=== PATIENT | male | born 1940 | race Caucasian/White ===

== ENCOUNTER → 2017-12-09 | Outpatient (CLI) | payer MEDICARE ==
[~2017-12-09] MED LIST: ABAC300; ABAC300 PO; ACIDOPHILUS LA1 EACH PO; ACIDOPHILUS1 EAC1 PO; ALBU3IS INH; ALBU90OI INH; ASCORBIC ACID PO; ASPI325 PO; ASPI81CH PO; ASPI81EC PO; ATOR20 PO; Acidophilus La100 GM; Acidophilus La100 GM PO; Albuterol Sulf8.5 GM INH; Alph-E-Mixed400 UNIT PO; CALACE667G PO; CALCA500CH PO; CARV3.125 PO; CEPH250A PO; CHOL10002 PO; CINA30 PO; CLON.2 PO; CLON.5 PO; CLOP75 PO; Calcium Acetat667 MG PO; DIAZ2 PO; DOCU100 PO; EPOE4000I SQ; ERGO50000 PO; FURO40 PO; GABA300 PO; GENT.1TC TOP; HYDACE10B PO; HYDACE5 PO; HYDR120LO TOP; HYDR25SUP PR; HYDROCODON-ACE1 EAC2 PO; Humulin N100 UNIT/1 SQ; INS70/30I SC; INSN100I SC; INSR10I SC; INSULANPEN SC; IPRA.03NI; ISOD40ER PO; ISOMON30 PO; LEVFLO500 PO; LIDO5TO TOP; LORA.5; LORA1; LOSA25 PO; LOSA50 PO; LOVENOX SC; METCAR500 PO; METO25 PO; METO25ER PO; METO50ER PO; MIDO5; MULVITB PO; Meribin5 MG PO; NEPHRO VITE PO; NEPHROCAP PO; NIFE90ER PO; Novolin R100 UNIT/M SC; OMEP20ER PO; OMEP40CA12 PO; OMEPRAZOLE MAGN20 MG PO; PANT40 PO; PRED10 PO; PREG50 PO; PROM25 PO; ROPI.25 PO; ROPI5 PO; ROSU10TA PO; Renal Caps Softg1 MG PO; Ropinirole HC0.25 MG PO; SENN187 PO; SERT50 PO; SEVE800 PO; SEVEC800 PO; TERA5 PO; TRIA80TC TOP; WARF10 PO; WARF5; ZOLP10 PO
[2017-12-09 08:56] LABS: Cholesterol 125 mg/dL (50-200); HDL Cholesterol 42 mg/dL (>39); LDL/HDL RATIO 1.7; Low Density Lipoprotein Chol 70 mg/dL (0-110); Triglycerides 67 mg/dL (30-160); Very Low Density Lipoprot Chol 13 mg/dL (6-32)
== END | disposition home or self-care (01) ==
LOC: LAB DAV 08:36
PROVIDERS: Internal Medicine Nephrology
DX: E78.00 Pure hypercholesterolemia, unspecified (principal)
CPT/HCPCS: 80061

== ENCOUNTER 2019-08-11 08:50 | Inpatient (IN) | payer OTHER, MEDICARE ==
[~2019-08-11] VITALS: Ht 182.9 cm; Wt 160.2 kg
[~2019-08-11 08:50] MED LIST changes: -LORA.5; +LORA.5 PO; -MIDO5; +MIDO5 PO
[2019-08-11 09:04] LABS: Base Excess Venous -1.1 mmol/L; Bicarbonate Venous 22.7 mmol/L (24.0-30.0); PCO2 Venous 53.1 mmHg (38-42); PO2 Venous 69.6 mmHg (38-42); pH Blood Venous 7.29 (7.34-7.37)
[2019-08-11 09:10] LABS: Calcium, Ionized (POC) 1.07 mmol/L (1.10-1.46); Chloride (POC) 101 mmol/L (98-108); Creatinine (POC) 12.2 mg/dL (0.8-1.3); Glucose (ISTAT POC) 210 mg/dL (70-99); Hemoglobin (POC) 13.6 g/dL (13.5-17.5); Potassium (POC) 6.8 mmol/L (3.5-5.5); Sodium (POC) 135 mmol/L (135-148); Total CO2 (POC) 26 mmol/L (21-32)
[2019-08-11] MEDS ORDERED: DOCU100 PO (09:17)
[2019-08-11] MEDS ORDERED: CLOP75 PO (09:17)
[2019-08-11] MEDS ORDERED: GABA300 PO (09:21)
[2019-08-11 09:23] LABS: BASOPHILS ABSOLUTE AUTO 0.03 K/mm3 (0.00-0.23); BASOPHILS PERCENT AUTO 0 % (0-2); EOSINOPHILS ABSOLUTE AUTO 0.01 K/mm3 (0.00-0.68); EOSINOPHILS PERCENT AUTO 0 % (0-6); Hematocrit 39.7 % (37.0-53.0); Hemoglobin 12.3 g/dL (13.5-17.5); IMMATURE GRAN PERCENT AUTO 1 % (0-1); LYMPHOCYTES ABSOLUTE AUTO 0.98 K/mm3 (0.84-5.20); LYMPHOCYTES PERCENT AUTO 4 % (21-46); MONOCYTES ABSOLUTE AUTO 0.76 K/mm3 (0.16-1.47); MONOCYTES PERCENT AUTO 3 % (4-13); Mean Corpuscular HGB 30.4 pg (26.0-34.0); Mean Corpuscular Volume 98 fL (80-100); Mean Platelet Volume 10.2 fL (9.1-12.4); NEUTROPHILS ABSOLUTE AUTO 21.25 K/mm3 (1.96-9.15); NEUTROPHILS PERCENT AUTO 91 % (41-73); Platelet Count 197 K/mm3 (150-400); RDW Coefficient Variation 14.8 % (11.7-14.2); RDW Standard Deviation 54.1 fL (35.1-46.3); Red Blood Cell Count 4.04 M/mm3 (4.30-5.90); White Blood Cell Count 23.33 K/mm3 (4.00-11.30)
[2019-08-11] MEDS ORDERED: NORTHERA100 MG PO (09:44)
[2019-08-11] MEDS ORDERED: NITR.4SL (09:45)
[2019-08-11] MEDS ORDERED: CINA30 PO (09:46)
[2019-08-11 10:05] LABS: Alanine Aminotransfer (ALT/SGP 20 U/L (12-78); Albumin, Blood 3.5 g/dL (3.4-5.0); Albumin/Globulin Ratio 0.8 (0.8-1.8); Alk Phos 70 U/L (50-136); Anion Gap 12 mmol/L (6-16); Aspartate Aminotrans (AST/SGOT 20 U/L (12-37); Bilirubin, Total 0.6 mg/dL (0.1-1.0); Blood Urea Nitrogen 98 mg/dL (8-24); CO2, Blood 25 mmol/L (21-32); Calcium, Blood 9.5 mg/dL (8.5-10.1); Chloride, Blood 98 mmol/L (98-108); Globulin, Blood 4.2 g/dL (2.2-4.0); Glucose, Blood 212 mg/dL (70-99); Sodium, Blood 135 mmol/L (136-145); Total Protein, Blood 7.7 g/dL (6.4-8.2)
--- NOTE | 2019-08-11 10:06 | NUR ---
Recieved report from Ricardo SHELBY. Patient is ICU status and went to Dialysis and went to Dialysis and asked about med that need to be given and Renny SHELBY stated they will have to wait until after Dialysis. They will call prior to patient coming to ICU 12.
[2019-08-11 10:19] LABS: Bun/Creatinine Ratio 9.2 (12.0-20.0); Glomerular Filtration Rate 5 (60-)
[2019-08-11 10:20] LABS: Magnesium, Blood 2.1 mg/dL (1.6-2.4); Phosphorus, Blood 5.2 mg/dL (2.5-4.9); Potassium, Blood 6.6 mmol/L (3.5-5.5)
--- NOTE | 2019-08-11 11:01 | NUR ---
DUE TO UNSTABLE CONDITION, HEMODIALYSIS WAS PAUSED AT APPROX 1030. PATIENT TRANSFERED TO ICU FOR INTENSIVE MANAGEMENT. FISTULA NEEDLES FLUSHED AND WRAPPED WITH COBAN. TREATMENT WILL RESUME WHEN JW ACUTE NURSE ARRIVES AT ICU.
--- NOTE | 2019-08-11 11:44 | NUR ---
Patient arrived at 1030 and was 4 person slide transfer. He is on BIPAP 14/6 BU rate 14 and FiO2 45% and sats mid 90%'s Dr Padron here with patient. Freddy RN in route to restart dialysis. Dr. Padron called Dialysis and wanted stopped and moved to ICU 12. Meds given that were ordered in ER and Dr Jimenez consulted in person. Chest Xray just done. He is hypotensive and will watch if nneeded line and Dr Jimenez already notified, His systolic 70-80 with MAP 50-60. Dialysis in room now hooking up.
--- NOTE | 2019-08-11 13:41 | NUR ---
Patient finishing dialysis and was started on Levophed at 5mcg/min and titrate to 10mcg/min and back do 7mcg/min and systolic 80-100's. When titrated back to 5mcg/min systolic dropped to low 80's. Patient is alert and able to communicate his needs. Family at bedside. He remains on BIPAP 14/ and is now down to 35% with sats 99%.
--- NOTE | 2019-08-11 15:28 | NUR ---
Dr Jimenez placed quad lumen central line right groin after failure right IJ. He is getting NS bolus and Levophed at 7mcg/min and systolic 90-100's. Central line 8.5 Fr 20cm. He remains on BIPAP 14/10 atv 35% with sats mid 90%'s.
--- NOTE | 2019-08-11 18:00 | NUR ---
Patient was up with lift to bedside cammode and had BM, brown and soft. He went back to bed and started on dinner and only ate about 30% of meal and 200ml fluids. He was getting SOB and placed BIPAP 14/10 35% and sats 94%. Levophed remains at 5mcg/min and systolic 114 and A-fib in the 80's. He also has NS at 125 ml/hr. went home until am.
--- NOTE | 2019-08-11 19:00 | NUR ---
ASSUMED CARE ASSUMED CARE OF PATIENT. REMAINS ON BIPAP 17/08, BUR 14, FIO2 35%. RR MID-20s. RESTING QUIETLY WHEN UNDISTURBED. ROUSES TO STIMULI. ORIENTED TO SELF, PLACE, MONTH/YEAR, AND SOMEWHAT TO EVENTS. SLOW VERBAL RESPONSE. MOVES ALL EXTREMITIES WELL. MONITOR SHOWS AFIB, RATE 80-90s. BP STABLE WITH LEVOPHED @ 5MCG/MIN. NS INFUSING @ 125CC/HR PER ORDER. EDMAR FISTULA WITH GOOD BRUIT/THRILL. LUE NON-FUNCTIONING FISTULA NOTED. PT IS ANURIC. SEE SHIFT ASSESSMENT FOR FULL ASSESSMENT.
[2019-08-12 02:28] LABS: BASOPHILS ABSOLUTE AUTO 0.02 K/mm3 (0.00-0.23); BASOPHILS PERCENT AUTO 0 % (0-2); EOSINOPHILS ABSOLUTE AUTO 0.01 K/mm3 (0.00-0.68); EOSINOPHILS PERCENT AUTO 0 % (0-6); Hematocrit 34.1 % (37.0-53.0); Hemoglobin 10.5 g/dL (13.5-17.5); IMMATURE GRAN PERCENT AUTO 1 % (0-1); LYMPHOCYTES ABSOLUTE AUTO 1.26 K/mm3 (0.84-5.20); LYMPHOCYTES PERCENT AUTO 6 % (21-46); MONOCYTES ABSOLUTE AUTO 1.08 K/mm3 (0.16-1.47); MONOCYTES PERCENT AUTO 6 % (4-13); Mean Corpuscular HGB 30.7 pg (26.0-34.0); Mean Corpuscular HGB Conc 30.8 g/dL (31.5-36.5); Mean Corpuscular Volume 100 fL (80-100); Mean Platelet Volume 10.2 fL (9.1-12.4); NEUTROPHILS ABSOLUTE AUTO 17.19 K/mm3 (1.96-9.15); NEUTROPHILS PERCENT AUTO 87 % (41-73); Platelet Count 141 K/mm3 (150-400); RDW Coefficient Variation 15.2 % (11.7-14.2); RDW Standard Deviation 55.3 fL (35.1-46.3); Red Blood Cell Count 3.42 M/mm3 (4.30-5.90); White Blood Cell Count 19.76 K/mm3 (4.00-11.30)
--- NOTE | 2019-08-12 02:30 | NUR ---
02 PT REQUESTING A BREAK FROM THE BIPAP- CHANGED TO 3L NC AT THIS TIME.
[2019-08-12 02:55] LABS: Albumin/Globulin Ratio 0.9 (0.8-1.8); Bun/Creatinine Ratio 8.5 (12.0-20.0); Calcium, Blood 8.7 mg/dL (8.5-10.1); Creatinine, Blood 8.04 mg/dL (0.60-1.20); Globulin, Blood 3.5 g/dL (2.2-4.0); Potassium, Blood 5.5 mmol/L (3.5-5.5); Total Protein, Blood 6.5 g/dL (6.4-8.2)
--- NOTE | 2019-08-12 04:15 | NUR ---
BIPAP PT READY TO GO BACK TO SLEEP AND IS REQUESTING BIPAP BACK ON. CONTINUES WITH SAME SETTINGS- 17/08, BUR 14, FIO2 35%.
--- NOTE | 2019-08-12 05:50 | NUR ---
SHIFT SUMMARY NO ACUTE CHANGES. SLEPT INTERMITTENTLY. ROUSES EASILY TO VERBAL STIMULI. PT IS ABLE TO ASSIST WITH REPOSITIONING. ON BIPAP T/O MOST OF NOC- TOOK APPROXIMATELY A TWO HOUR BREAK ON 3LNC. SOB NOTED WITH EXERTION. TAKING PO FLUIDS WITHOUT DIFFICULTY. REMAINS IN AFIB, NOW WITH BBB, RATE 80-90s. BP STABLE WITH LEVOPHED BETWEEN 3-5MCG/MIN- NOW INFUSING @ 4MCG/MIN. NS INFUSING @ 125CC/HR PER ORDER. NO URINE VOID DURING NOC. WILL REPORT TO DAY SHIFT RN WHEN AVAILABLE.
--- NOTE | 2019-08-12 07:33 | NUR ---
Recieved report from Dasia SHELBY. Patient just placed back to bed from bedside cammode using sling lift. He has medium soft /brown bm. He has BIPAP in place 14/10 Fio2 30% sats 98%. He has bilateral 20ga IV's in upper chest toward his arm pits, both flushed and SL'd. He also has quad lumen central right groin, dressings intact and site WNL's. CL infusing NS 125ml/hr and Levophed 4 mcg/min and systolics low 100's. He continues in A-Fib with BBB. He is alert and oriented and acble to communicate his needs. just arrived.
--- NOTE | 2019-08-12 12:08 | NUR ---
PATIENT STARTED DIALYSIS AT 1115 AND WILL RUN TIL 1315. DIALYSIS PLAN TO PULL 3 LITERS. NS OFF DURING DIALYSIS AND DR SANCHEZ AWARE. PATIENT RESTING WATCHING TV. HE REMAINS ON THREE LITERS O2 AND SATS IN THE UPPER 90%. SYSTOLIC IN THE 100-118. HE IS TOLERATING DIALYSIS WELL.
[2019-08-12 13:23] LABS: Vancomycin, Random 12.7 ug/mL
--- NOTE | 2019-08-12 15:10 | NUR ---
Patient up to bedside cammode with ceiling lift and then back to bed. Family ay bedside and are working on getting his Northera here, called Dr Guzmán to see if he had more sample for family and they will corn picker tomorrow
--- NOTE | 2019-08-12 16:24 | NUR ---
Spiritual Care inital visit: Met with Renny and his , Lorna at bedside. Both report acceptance with Renny's journey and decline. Renny is satisfied with his life-style and limitation. Lorna appears quite dedicated to caring for him. Marriage is strong with good support of adult children. Lorna was talkative--expressing frustration with EMS and [place] system for continuing to "Push" them to change Renny's code status to DNR. Renny has an Advanced Directive on file at [place] and he sees no reason to change it. I provided emotional affirmation and prayer to good effect. I will remain available.
--- NOTE | 2019-08-12 17:30 | NUR ---
Patient sitting up in bed eating dinner, Started on Northera with changed dose as he takes at home. He remains on Levophed at 4mcg/min and systolics low 100's. He denies any pain. Plan for Dialysis again.
--- NOTE | 2019-08-12 18:54 | NUR ---
Placed levophed on standby for systolics in the 120's
--- NOTE | 2019-08-12 19:30 | NUR ---
ASSESSMENT PT SITTING UP IN BED WATCHING TV WITH BIPAP ON. A&O. DENIES PAIN OR DISCOMFORT. REQUESTED,"IMODIUM, I'VE HAD LOOSE STOOLS ALL LATE NIGHT AND TODAY. WHEN IT GETS LIKE THIS AT HOME I TAKE IMODIUM". CALL TO HOSPITALIST BETZAIDA AND NEW ORDER RECEIVED. BIPAP 17/08 RATE 14 FIO2 30%. PT TAKING BREAKS AND USING O2 3 LITERS VIA NC. REPORTS SOB ABOUT THE SAME NORMAL. FISTULA TO LEFT ARM WITH STRONG BRUIT AND THRILL. CENTRAL LINE TO RIGHT GROIN DRSG INTACT. LEVOPHED AT 2 MCQ/MIN AND NS AT 125 ML/HR. WILL CONT TO MONITOR BP AND TITRATE LEVOPHED TO KEEP MAP ABOVE 65.
[2019-08-13 03:38] LABS: BASOPHILS ABSOLUTE AUTO 0.02 K/mm3 (0.00-0.23); BASOPHILS PERCENT AUTO 0 % (0-2); EOSINOPHILS ABSOLUTE AUTO 0.11 K/mm3 (0.00-0.68); EOSINOPHILS PERCENT AUTO 1 % (0-6); Hematocrit 31.9 % (37.0-53.0); Hemoglobin 9.8 g/dL (13.5-17.5); IMMATURE GRAN ABSOLUTE AUTO 0.04 K/mm3 (0.00-0.10); IMMATURE GRAN PERCENT AUTO 0 % (0-1); LYMPHOCYTES ABSOLUTE AUTO 0.62 K/mm3 (0.84-5.20); LYMPHOCYTES PERCENT AUTO 5 % (21-46); MONOCYTES ABSOLUTE AUTO 0.65 K/mm3 (0.16-1.47); MONOCYTES PERCENT AUTO 6 % (4-13); Mean Corpuscular HGB 30.6 pg (26.0-34.0); Mean Corpuscular HGB Conc 30.7 g/dL (31.5-36.5); Mean Corpuscular Volume 100 fL (80-100); Mean Platelet Volume 10.2 fL (9.1-12.4); NEUTROPHILS ABSOLUTE AUTO 10.34 K/mm3 (1.96-9.15); NEUTROPHILS PERCENT AUTO 88 % (41-73); Platelet Count 130 K/mm3 (150-400); RDW Coefficient Variation 15.1 % (11.7-14.2); White Blood Cell Count 11.78 K/mm3 (4.00-11.30)
[2019-08-13 03:55] LABS: Albumin, Blood 2.7 g/dL (3.4-5.0); Anion Gap 9 mmol/L (6-16); Blood Urea Nitrogen 52 mg/dL (8-24); Bun/Creatinine Ratio 8.2 (12.0-20.0); CO2, Blood 30 mmol/L (21-32); Calcium, Blood 8.2 mg/dL (8.5-10.1); Chloride, Blood 101 mmol/L (98-108); Creatinine, Blood 6.36 mg/dL (0.60-1.20); Glomerular Filtration Rate 9 (60-); Glucose, Blood 153 mg/dL (70-99); Magnesium, Blood 1.9 mg/dL (1.6-2.4); Phosphorus, Blood 4.8 mg/dL (2.5-4.9); Potassium, Blood 4.6 mmol/L (3.5-5.5); Sodium, Blood 140 mmol/L (136-145)
--- NOTE | 2019-08-13 06:10 | NUR ---
SHIFT SUMMARY PT SLEPT MOST OF THE NIGHT WITH BIPAP ON. BIPAP SETTINGS 14/10 RATE 14 FIO2 30%. BREAKS FROM BIPAP GIVEN AND PT PLACE ON 3 LITERS VIA NC. UP TO BSC WITH THE LIFT TWICE DURING THE NIGHT. LEVOPHED RESTARTED DUE TO SBP IN THE 70'S. TRIED TO TITRATE DOWN FROM 2 MCQ/MIN TO 1 MCQ/MIN BUT BP DECREASED BACK INTO THE 70'S AGAIN. BACK UP TO 2 MCQ/MIN. REPORT TO ON COMING NURSE
--- NOTE | 2019-08-13 07:00 | NUR ---
ASSUMED CARE: RECEIVED REPORT FROM BETSY RN. PT SITTING UP IN BED AT APPROX 30 DEGREE ANGLE. LEVOPHED NOTED TO BE RUNNING AT 2 MCG/HR AND NS NOTED AT 125 ML/HR. NO DISTRESS NOTED. PT ON 2L NC WITH SATS NOTED >92%. WILL CONTINUE TO MONITOR AND ASSESS FURTHER. CALL LIGHT IN REACH.
--- NOTE | 2019-08-13 10:00 | NUR ---
LEVOPHED OFF TURNED LEVOPHED OFF AT THIS TIME. WILL CONTINUE TO ASSESS.
[2019-08-13 12:32] LABS: Vancomycin, Random 22.3 ug/mL
--- NOTE | 2019-08-13 12:40 | NUR ---
MEDICAL FLOOR STATUS: DR SANCHEZ ORDERED FOR MEDICAL FLOOR NO TELE TRANSFER FOR THE PT. THIS RN CALLED DR EVERETT PER DR SANCHEZ AND HE HAS NO OBJECTIONS AT THIS TIME.
--- NOTE | 2019-08-13 13:44 | NUR ---
TRANSFER TO 310: REPORT GIVEN TO MED FLOOR RN. PT BEING TRANSFERED UP TO ROOM VIA RECLINER. NO DISTRESS NOTED.
--- NOTE | 2019-08-13 19:14 | NUR ---
SHIFT SUMMARY: PATIENT TRANSFER FROM ICU-12 THIS SHIFT. PT A&O; CALM AND COOPERATIVE WITH CARE. NO C/O PAIN/ NAUSEA SINCE ARRIVAL ON MEDICAL. PT CHAIR/BEDBOUND; TURN Q2H; UP WITH SISI TO BSC; STAND-PIVOT TO CHAIR. DIALYSIS PATIENT; ANURIC; A-V FISTULAS TO BUE; CENTRAL LINE TO R GROIN. NS @ 125 CONTINUING; DIALYSIS PLANNED FOR 08/14. REPORT GIVEN TO ONCOMING RN.
--- NOTE | 2019-08-14 01:49 | NUR ---
CURRENTLY ON BIPAP NOSE MASK, SOME ORAL FLUTTERING BUT NO NOTED DISRUPTION OF SLEEP. IV ANTIBIOTICS AND FLUIDS INFUSING - SEE MAR FOR DETAILS. SCHEDULED FOR POSSIBLE DIALYSIS LATER TODAY - SEE SCHEDULE FOR MORE DETAILS. CONTACT PRECAUTIONS MAINTAINED. CALL LIGHT IN REACH. WILL CONTINUE TO MONITOR.
[2019-08-14 05:14] LABS: Hematocrit 30.2 % (37.0-53.0); Hemoglobin 9.4 g/dL (13.5-17.5)
[2019-08-14 05:43] LABS: Albumin, Blood 2.7 g/dL (3.4-5.0); Anion Gap 10 mmol/L (6-16); Blood Urea Nitrogen 68 mg/dL (8-24); Bun/Creatinine Ratio 8.8 (12.0-20.0); CO2, Blood 27 mmol/L (21-32); Calcium, Blood 8.2 mg/dL (8.5-10.1); Chloride, Blood 102 mmol/L (98-108); Creatinine, Blood 7.73 mg/dL (0.60-1.20); Glomerular Filtration Rate 7 (60-); Glucose, Blood 121 mg/dL (70-99); Magnesium, Blood 2.1 mg/dL (1.6-2.4); Phosphorus, Blood 5.5 mg/dL (2.5-4.9); Potassium, Blood 4.9 mmol/L (3.5-5.5); Sodium, Blood 139 mmol/L (136-145)
[2019-08-14] MEDS ORDERED: Vsl#3 Capsule1 EACH PO (12:54)
[2019-08-14] MEDS ORDERED: AMOCLA875 PO (12:56)
--- NOTE | 2019-08-14 16:10 | NUR ---
PATIENT DISCHARGE: PATIENT DISCHARGED TO HOME THIS SHIFT. MEDICATION RECONCILIATION COMPLETED; MED LIST FAXED TO [facility]; HOME MEDS RETURNED TO PATIENT. DISCHARGE EDUCATION COMPLETED WITH PATIENT AND SPOUSE. PATIENT USES POWERED WHEELCHAIR; PATIENT ESCORTED TO EXIT BY [facility] STAFF. PATIENT DEPARTED [facility] VIA PRIVATE AUTO.
== END 2019-08-14 16:02 | disposition home or self-care (01) | DRG 871 ==
LOC: ER 08:50 → ICUW 09:42 → MEDS 08-13 13:53
PROVIDERS: Emergency Medicine; Internal Medicine Critical Care Medicine; Internal Medicine Nephrology; Nurse Practitioner Acute Care; ADMIT Internal Medicine
PROC: 02HV33Z Insertion of Infusion Device into Superior Vena Cava, Percutaneous Approach (ICD-10-PCS; principal; 2019-08-11)
PROC: B518YZA Fluoroscopy of Superior Vena Cava using Other Contrast, Guidance (ICD-10-PCS; 2019-08-11)
PROC: 5A1D70Z Performance of Urinary Filtration, Intermittent, Less than 6 Hours Per Day (ICD-10-PCS; 2019-08-11)
PROC: 5A1D70Z Performance of Urinary Filtration, Intermittent, Less than 6 Hours Per Day (ICD-10-PCS; 2019-08-11)
PROC: 5A09457 Assistance with Respiratory Ventilation, 24-96 Consecutive Hours, Continuous Positive Airway Pressure (ICD-10-PCS; 2019-08-11)
DX: A41.9 Sepsis, unspecified organism (principal); J18.1 Lobar pneumonia, unspecified organism; R65.21 Severe sepsis with septic shock; J96.21 Acute and chronic respiratory failure with hypoxia; N18.6 End stage renal disease; I13.2 Hypertensive heart and chronic kidney disease with heart failure and with stage 5 chronic kidney disease, or end stage renal disease; I50.42 Chronic combined systolic (congestive) and diastolic (congestive) heart failure; Z68.42 Body mass index [BMI] 45.0-49.9, adult; N25.81 Secondary hyperparathyroidism of renal origin; G47.33 Obstructive sleep apnea (adult) (pediatric); E11.22 Type 2 diabetes mellitus with diabetic chronic kidney disease; Z99.2 Dependence on renal dialysis; D63.1 Anemia in chronic kidney disease; E66.01 Morbid (severe) obesity due to excess calories; E78.5 Hyperlipidemia, unspecified; K21.9 Gastro-esophageal reflux disease without esophagitis; Z79.4 Long term (current) use of insulin; E87.5 Hyperkalemia; I48.0 Paroxysmal atrial fibrillation; I95.9 Hypotension, unspecified; Z99.81 Dependence on supplemental oxygen; Z87.891 Personal history of nicotine dependence
CPT/HCPCS: 36415; 36556; 71045; 80047; 80053; 80069; 80202; 82550; 82803; 82947; 83605; 83735; 83880; 84100; 84145; 84484; 85014; 85018; 85025; 87040; 93005; 93010; 94640; 94660; 94762; 99285-25; C1751; C9113; J0610; J1644; J1815; J2543; J3370; J7030; J7040; J7060; J7799; P9046

== ENCOUNTER 2019-10-02 15:27 | Inpatient (IN) | payer OTHER, MEDICARE ==
[~2019-10-02] VITALS: Ht 190.5 cm; Wt 150.1 kg
[~2019-10-02 15:27] MED LIST changes: +ALBU2.5V5 NEB; -ALBU3IS INH; +AMOCLA875 PO; -MIDO5 PO; +Midodrine HCl10 MG PO; +NITR.4SL; +NORCO 10-325 T1 EACH PO; +NORTHERA100 MG PO; +Vsl#3 Capsule1 EACH PO
[2019-10-02 16:09] LABS: BASOPHILS ABSOLUTE AUTO 0.04 K/mm3 (0.00-0.23); BASOPHILS PERCENT AUTO 0 % (0-2); EOSINOPHILS ABSOLUTE AUTO 0.13 K/mm3 (0.00-0.68); EOSINOPHILS PERCENT AUTO 1 % (0-6); Hematocrit 41.1 % (37.0-53.0); Hemoglobin 12.4 g/dL (13.5-17.5); IMMATURE GRAN ABSOLUTE AUTO 0.04 K/mm3 (0.00-0.10); IMMATURE GRAN PERCENT AUTO 0 % (0-1); LYMPHOCYTES ABSOLUTE AUTO 1.29 K/mm3 (0.84-5.20); LYMPHOCYTES PERCENT AUTO 12 % (21-46); MONOCYTES ABSOLUTE AUTO 0.99 K/mm3 (0.16-1.47); MONOCYTES PERCENT AUTO 9 % (4-13); Mean Corpuscular HGB 30.3 pg (26.0-34.0); Mean Corpuscular HGB Conc 30.2 g/dL (31.5-36.5); Mean Corpuscular Volume 101 fL (80-100); Mean Platelet Volume 9.9 fL (9.1-12.4); NEUTROPHILS ABSOLUTE AUTO 8.34 K/mm3 (1.96-9.15); NEUTROPHILS PERCENT AUTO 77 % (41-73); Platelet Count 136 K/mm3 (150-400); RDW Coefficient Variation 15.7 % (11.7-14.2); RDW Standard Deviation 58.1 fL (35.1-46.3); Red Blood Cell Count 4.09 M/mm3 (4.30-5.90); White Blood Cell Count 10.83 K/mm3 (4.00-11.30)
[2019-10-02 16:38] LABS: Troponin I <0.015 ng/mL (0.000-0.040)
[2019-10-02 16:46] LABS: Alanine Aminotransfer (ALT/SGP 17 U/L (12-78); Albumin/Globulin Ratio 0.7 (0.8-1.8); Alk Phos 66 U/L (50-136); Anion Gap 13 mmol/L (6-16); Aspartate Aminotrans (AST/SGOT 21 U/L (12-37); Bilirubin, Total 0.9 mg/dL (0.1-1.0); Blood Urea Nitrogen 60 mg/dL (8-24); Bun/Creatinine Ratio 7.2 (12.0-20.0); CO2, Blood 21 mmol/L (21-32); Calcium, Blood 8.7 mg/dL (8.5-10.1); Chloride, Blood 100 mmol/L (98-108); Globulin, Blood 4.6 g/dL (2.2-4.0); Glomerular Filtration Rate 7 (60-); Glucose, Blood 115 mg/dL (70-99); Potassium, Blood 5.9 mmol/L (3.5-5.5); Sodium, Blood 134 mmol/L (136-145); Total Protein, Blood 7.6 g/dL (6.4-8.2)
[2019-10-02] MEDS ORDERED: GABA300 PO (18:45)
[2019-10-02] MEDS ORDERED: PREG50 PO (18:51)
[2019-10-02] MEDS ORDERED: ONDA4ODT SL (18:52)
[2019-10-02] MEDS ORDERED: VITAMIN D3400 UNI1 PO (18:57)
[2019-10-02] MEDS ORDERED: ASCO500 PO (18:57)
[2019-10-02] MEDS ORDERED: VITAMIN E400 UNI1 PO (18:58)
[2019-10-02] MEDS ORDERED: Calcium Carbon650 MG PO (18:59)
--- NOTE | 2019-10-02 21:12 | NUR ---
ADMISSION: PATIENT IS RECEIVED FROM ER VIA STRETCHER, NO COMPLIANTS OF PAIN, VS ARE STABLE. PATIENT IS ORIENTED TO ROOM AND CALL BED.
--- NOTE | 2019-10-02 21:44 | NUR ---
: DR LAM WAS NOTIFIED THAT PATIENT IS ON FLOOR. ORDER TO CALL SOLDERER BARREL RIBS IN TO GIVE DIALYSIS TONIGHT. NURSING DRY KILN FEEDER IS NOTIFIED OF ORDER.
--- NOTE | 2019-10-02 23:13 | NUR ---
URGENT HD 1:1 NON-ROUTINE HOURS HEMODIALYSIS ORERED BY DR LAM FOR PATIENT ADMITTED VIA ER FOR HYPERKALEMIA, FLUID OVERLOAD AND SOB.
--- NOTE | 2019-10-03 04:24 | NUR ---
ISOLATION: PATIENT HAS A HISTORY OF MRSA IN THE [place], CONTACT ISOLATION IS INTIATED UPON ADMISSION. MRSA SWABS ARE NOT ORDERED DUE TO PATIENT HAVING ANTIBIOTICS IN THE ER.
[2019-10-03 05:06] LABS: Hematocrit 37.6 % (37.0-53.0); Hemoglobin 11.4 g/dL (13.5-17.5)
--- NOTE | 2019-10-03 05:18 | NUR ---
SHIFT SUMMARY: DIALYSIS WAS COMPLETED IN ROOM, PATIENT TOLERATED WELL AND WAS ABLE TO SLEEP THROUGH PROCEEDURE. NO COMPLIANTS OF PAIN, DISCOMFORT OR RESPIRATORY DISTRESS. WEARING CPAP DURING SLEPP AND MAINTAINING SATS IN MID 90'S WITH NO DESATURATIONS OBSERVED.
[2019-10-03 05:38] LABS: Anion Gap 10 mmol/L (6-16); Blood Urea Nitrogen 49 mg/dL (8-24); Bun/Creatinine Ratio 6.7 (12.0-20.0); CO2, Blood 31 mmol/L (21-32); Calcium, Blood 8.7 mg/dL (8.5-10.1); Chloride, Blood 99 mmol/L (98-108); Creatinine, Blood 7.27 mg/dL (0.60-1.20); Glomerular Filtration Rate 8 (60-); Glucose, Blood 118 mg/dL (70-99); Magnesium, Blood 2.4 mg/dL (1.6-2.4); Phosphorus, Blood 3.8 mg/dL (2.5-4.9); Potassium, Blood 5.1 mmol/L (3.5-5.5); Sodium, Blood 140 mmol/L (136-145)
--- NOTE | 2019-10-03 19:40 | NUR ---
SHIFT SUMMARY- PT HAD DIALYSIS LAST NIGHT AND AGAIN TODAY A TOTAL OF 5L OF FLUID WAS REMOVED. PT STATES HE DOES NOT PEE HOWEVER HE HAS BEEN TO THE BATHROOM FOR BOWELS 3 OR MORE TIMES T/O THE SHIFT. PT HAS A HEALTHY APPETITE, AND WATCHES HIS FLUID INTAKE. PT ADMITTED WITH PNEUMONIA ON 4L O2 VIA NC CPAP AT HS WITH 4L BLEED IN. PT ON CONT BIOX. SPOUSE AT THE BEDSIDE NUMBER ON THE BOARD. PT ALERT AND ORIENTED 2PA PIVOT TRANSFER TO WC TO BATHROOM. PT IS CONTINENT OF STOOL.
[2019-10-04 05:05] LABS: Hematocrit 37.3 % (37.0-53.0); Hemoglobin 11.2 g/dL (13.5-17.5)
[2019-10-04 05:31] LABS: Albumin, Blood 2.9 g/dL (3.4-5.0); Anion Gap 11 mmol/L (6-16); Blood Urea Nitrogen 49 mg/dL (8-24); Bun/Creatinine Ratio 6.7 (12.0-20.0); CO2, Blood 29 mmol/L (21-32); Calcium, Blood 8.6 mg/dL (8.5-10.1); Chloride, Blood 95 mmol/L (98-108); Creatinine, Blood 7.26 mg/dL (0.60-1.20); Glomerular Filtration Rate 8 (60-); Glucose, Blood 116 mg/dL (70-99); Magnesium, Blood 2.5 mg/dL (1.6-2.4); Phosphorus, Blood 5.3 mg/dL (2.5-4.9); Potassium, Blood 4.3 mmol/L (3.5-5.5); Sodium, Blood 135 mmol/L (136-145)
--- NOTE | 2019-10-04 06:23 | NUR ---
PT continues on antibiotics for resp infection. Baseline 3 or 4 nasal cannula and home bipap. Wore bipap for minimal time. Snores when bipap off. Bioxx for GULSHAN. Continues in contact isolation for MRSA hx. Continues on Dialysis, baseline has 4 days weekly. Requires dialysis 4 days weekly for end stage renal disease. was in and supportive. PT up to bathroom via wc with 2 extensive assist. BG at HS 175 10 units lantus given per EMAR.
--- NOTE | 2019-10-04 18:30 | NUR ---
SHIFT SUMMARY- PT WAS DIALIZED AGAIN TODAY ANOTHER 2L WAS REMOVED. PT SAID HE IS FEELING ALOT BETTER NOW, HE'S "READY TO GO HOME." PT HAS DENIED PAIN AND CRAMPING TODAY AFTER DIALYSIS. PT WAS MEDICATED PRIOR TO DIALYSIS AND DID HAVE PAIN AND CRAMPING DURRING DIALYSIS, HOWEVER HAS DENIED ANY PAIN SINCE ARRIVING BACK ON MEDICAL FLOOR. VS HAVE REMAINED STABLE PT IS A 2PA TO THE ATHROOM VIA W/C. PT HAS HAD ONE BM TODAY.
[2019-10-05 05:47] LABS: Hematocrit 37.4 % (37.0-53.0); Hemoglobin 11.7 g/dL (13.5-17.5)
[2019-10-05 06:07] LABS: Anion Gap 13 mmol/L (6-16); Blood Urea Nitrogen 51 mg/dL (8-24); Bun/Creatinine Ratio 6.9 (12.0-20.0); CO2, Blood 29 mmol/L (21-32); Chloride, Blood 90 mmol/L (98-108); Creatinine, Blood 7.41 mg/dL (0.60-1.20); Glomerular Filtration Rate 8 (60-); Glucose, Blood 135 mg/dL (70-99); Magnesium, Blood 2.4 mg/dL (1.6-2.4); Phosphorus, Blood 5.4 mg/dL (2.5-4.9); Potassium, Blood 4.6 mmol/L (3.5-5.5); Sodium, Blood 132 mmol/L (136-145)
--- NOTE | 2019-10-05 09:15 | NUR ---
PATIENT TAKEN DOWN TO DIALYSIS IN BED.
[2019-10-05] MEDS ORDERED: DOCU100 PO (12:19)
[2019-10-05] MEDS ORDERED: Flonase 0.05% N16 GM (12:20)
[2019-10-05] MEDS ORDERED: ALLERGY EYE DRO10 M1 BOTHEYES (12:24)
[2019-10-05] MEDS ORDERED: ASPERCREME76.5 GM TOP (12:25)
[2019-10-05] MEDS ORDERED: LIDO700A20 TOP (12:25)
[2019-10-05] MEDS ORDERED: METO25ER PO (12:26)
[2019-10-05] MEDS ORDERED: GAVILAX17 GM PO (12:28)
[2019-10-05] MEDS ORDERED: RENAL-VITE TAB0.8 MG PO (12:29)
[2019-10-05] MEDS ORDERED: CINA30 PO (12:35)
--- NOTE | 2019-10-05 19:11 | NUR ---
PATIENT A/OX4, UP WITH 2 ASSIST TO W/C. PATIENT C/O HEARTBURN THROUGHOUT THE DAY. GI COCKTAIL AND TUMS GIVEN WITHOUT RELIEF. TROPONIN WAS NEGATIVE, CHEST X-RAY DONE THIS EVENING, NO RESULTS YET. VSS, ON 3LO2 TO MAINTAIN SATS. A-FIB ON TELE, RATE 100-110 TODAY. PATIENT REPORTS THAT HE FEELS LIKE SOMETHING IS STUCK IN HIS THROAT MAKING IT DIFFICULT TO SWALLOW. DIET CHANGED TO CLEARS LIQUIDS, PATIENT NPO AFTER MIDNIGHT FOR POSSIBLE GI CONSULT IN AM IF SYMPTOMS DON'T RESOLVE. 20G IV TO R FAEDMAR. CALLS APPROPRIATELY FOR ASSISTANCE.
--- NOTE | 2019-10-06 04:16 | NUR ---
Patient slept well overnight. Assisted to reposition q2h and changed incontined brifs when soiled.
--- NOTE | 2019-10-06 04:21 | NUR ---
Shift Summary Patient slept well overnight with bipap on 4L. He stated he was somewhat anxious, but PRN HS Ativan helped with this, and he was able to sleep. No c/o SOB at rest.
[2019-10-06 05:01] LABS: Hematocrit 38.8 % (37.0-53.0)
[2019-10-06 05:27] LABS: Magnesium, Blood 2.3 mg/dL (1.6-2.4)
[2019-10-06 05:30] LABS: Anion Gap 10 mmol/L (6-16); Blood Urea Nitrogen 42 mg/dL (8-24); Bun/Creatinine Ratio 6.1 (12.0-20.0); CO2, Blood 32 mmol/L (21-32); Calcium, Blood 9.1 mg/dL (8.5-10.1); Chloride, Blood 94 mmol/L (98-108); Creatinine, Blood 6.88 mg/dL (0.60-1.20); Glomerular Filtration Rate 8 (60-); Glucose, Blood 124 mg/dL (70-99); Phosphorus, Blood 4.7 mg/dL (2.5-4.9); Sodium, Blood 136 mmol/L (136-145)
--- NOTE | 2019-10-06 18:03 | NUR ---
SHIFT SUMMARY NO ACUTE CHANGES. PATIENT DENIES NAUSEA AND SHORTNESS OF BREATH. REPORTS HEARTBURN AND EPIGASTRIC DISCOMFORT. PATIENT ON CLEAR LIQUID DIET, TOLERATING WELL. GI CONSULT WITH DR. HOLLAND PLACED TODAY. AT BEDSIDE. PATIENT UP TWO ASSIST STAND PIVOT WITH GAIT BELT TO WHEELCHAIR. CALL LIGHT IN REACH.
[2019-10-07 04:58] LABS: Hematocrit 39.3 % (37.0-53.0)
[2019-10-07 05:30] LABS: Magnesium, Blood 2.4 mg/dL (1.6-2.4)
[2019-10-07 05:34] LABS: Anion Gap 14 mmol/L (6-16); Blood Urea Nitrogen 57 mg/dL (8-24); Bun/Creatinine Ratio 6.5 (12.0-20.0); CO2, Blood 26 mmol/L (21-32); Calcium, Blood 8.4 mg/dL (8.5-10.1); Chloride, Blood 92 mmol/L (98-108); Creatinine, Blood 8.75 mg/dL (0.60-1.20); Glomerular Filtration Rate 6 (60-); Glucose, Blood 122 mg/dL (70-99); Phosphorus, Blood 6.2 mg/dL (2.5-4.9); Potassium, Blood 4.5 mmol/L (3.5-5.5); Sodium, Blood 132 mmol/L (136-145)
--- NOTE | 2019-10-07 06:14 | NUR ---
SHIFT SUMMARY: VSS. AFEB. DENIES PAIN. REPORTS ONGOING DIFFICULTY SWALLOWING- STATES THAT IT FEELS LIKE AN AIR BUBBLE IS KEEPING PO FOOD AND FLUIDS FROM SMOOTHLY MOVING THROUGH ESOPHAGUS. DENIES N/V, FEELS HUNGRY THIS MORNING. COMPLIANT WITH ORDERED WATER/ICE CHIPS DIET. LSCTA, NO COUGHING. SOB WITH EXERTION. O2 SATS 93-100% ON 4L. APPEARS TO HAVE SLEPT THROUGH THE NIGHT. BED LOW, CALL BUTTON WITHIN REACH.
--- NOTE | 2019-10-07 16:36 | NUR ---
History, Chart, Medications and Allergies reviewed before start of procedure. Exp. wheeze noted. Coarse lung sounds t/o. Pre-Op teaching done. Pt verbalizes understanding. Patient confirms NPO status and agrees with scheduled surgery.
--- NOTE | 2019-10-07 16:44 | NUR ---
10/07/19 1644 Golden Alfaro See Anesthesia record. O2 VIA N/C INTACT THROUGHOUT SEDATION/PROCEDURE. Patient to ENDO 1. History, Chart, Medications and Allergies reviewed before start of procedure. MONITOR INTACT WITH CONTINUOUS PULSE OXIMETRY AND INTERMITTENT BP. Bite Block Placed.
--- NOTE | 2019-10-07 17:44 | NUR ---
SHIFT SUMMARY PATIENT DENIES NAUSEA, AND SHORTNESS OF BREATH. PATIENT REPORTS PAINFUL MOUTH. NEW ORDER FOR CLOTRIMAZOLE MINA. PATIENT HAD DIALYSIS TODAY. PATIENT HAD EGD TODAY. PATIENT UP 2 ASSIST WITH GAIT BELT TO PIVOT TRANSFER. AT BEDSIDE. CALL LIGHT IN REACH.
[2019-10-08 06:35] LABS: Hematocrit 41.7 % (37.0-53.0); Hemoglobin 12.8 g/dL (13.5-17.5)
--- NOTE | 2019-10-08 06:46 | NUR ---
SHIFT SUMMARY PATIENT PLEASANT, ALERT, AND ORIENTED. HE DID NOT WANT TO WEAR HIS BIPAP OVERNIGHT BUT INSTEAD CHOSE TO REMAIN ON 4 LITERS O2 VIA NASAL CANULA. BED IN LOWEST POSITION WITH WHEELS LOCKED. CALL LIGHT WITHIN REACH. REPORT GIVEN TO ONCOMING RN.
[2019-10-08 06:55] LABS: Magnesium, Blood 2.4 mg/dL (1.6-2.4)
[2019-10-08 07:05] LABS: Albumin, Blood 3.3 g/dL (3.4-5.0); Anion Gap 11 mmol/L (6-16); Blood Urea Nitrogen 44 mg/dL (8-24); Bun/Creatinine Ratio 5.4 (12.0-20.0); CO2, Blood 30 mmol/L (21-32); Chloride, Blood 95 mmol/L (98-108); Creatinine, Blood 8.09 mg/dL (0.60-1.20); Glomerular Filtration Rate 7 (60-); Glucose, Blood 125 mg/dL (70-99); Phosphorus, Blood 5.8 mg/dL (2.5-4.9); Potassium, Blood 4.4 mmol/L (3.5-5.5); Sodium, Blood 136 mmol/L (136-145)
[2019-10-08] MEDS ORDERED: DOXY100 PO (10:39)
[2019-10-08] MEDS ORDERED: Humalog Mi100 UNIT/4 (10:41)
[2019-10-08] MEDS ORDERED: MYNEPHRON CAPSUL1 MG PO (10:48)
--- NOTE | 2019-10-08 11:11 | NUR ---
DISCHARGE DISCHARGE INSTRUCTIONS, MEDICATION LIST AND FOLLOW UP APPOINTMENTS REVIEWED WITH PT AND SPOUSE. QUESTIONS/CONCERNS ANSWERED. BOTH VERBALLY INDICATED UNDERSTANDING OF ALL INSTRUCTIONS RECEIVED. PT DISCHARGING AND GOING TO [facility] FOR DIALYSIS. TELE MONITOR REMOVED AND RETURNED TO PCU.
== END 2019-10-08 11:08 | disposition home or self-care (01) | DRG 291 ==
LOC: ER 15:27 → MEDS 17:48 → ENPENDDIS 10-08 09:30 → MEDS 10-08 11:08
PROVIDERS: Emergency Medicine; Internal Medicine Gastroenterology; Internal Medicine Nephrology; ADMIT Internal Medicine
PROC: 5A1D70Z Performance of Urinary Filtration, Intermittent, Less than 6 Hours Per Day (ICD-10-PCS; 2019-10-03)
PROC: 0DJ08ZZ Inspection of Upper Intestinal Tract, Via Natural or Artificial Opening Endoscopic (ICD-10-PCS; principal; 2019-10-07 16:30)
DX: I13.2 Hypertensive heart and chronic kidney disease with heart failure and with stage 5 chronic kidney disease, or end stage renal disease (principal); N18.6 End stage renal disease; I50.43 Acute on chronic combined systolic (congestive) and diastolic (congestive) heart failure; N25.81 Secondary hyperparathyroidism of renal origin; E87.1 Hypo-osmolality and hyponatremia; K92.2 Gastrointestinal hemorrhage, unspecified; Z68.42 Body mass index [BMI] 45.0-49.9, adult; I42.9 Cardiomyopathy, unspecified; G25.81 Restless legs syndrome; G47.33 Obstructive sleep apnea (adult) (pediatric); Z87.891 Personal history of nicotine dependence; K21.9 Gastro-esophageal reflux disease without esophagitis; J44.9 Chronic obstructive pulmonary disease, unspecified; E87.5 Hyperkalemia; I48.0 Paroxysmal atrial fibrillation; E78.5 Hyperlipidemia, unspecified; E66.01 Morbid (severe) obesity due to excess calories; Z99.2 Dependence on renal dialysis; E11.42 Type 2 diabetes mellitus with diabetic polyneuropathy; E11.22 Type 2 diabetes mellitus with diabetic chronic kidney disease; E88.09 Other disorders of plasma-protein metabolism, not elsewhere classified; E11.40 Type 2 diabetes mellitus with diabetic neuropathy, unspecified; Z22.322 Carrier or suspected carrier of Methicillin resistant Staphylococcus aureus; R13.10 Dysphagia, unspecified; I25.10 Atherosclerotic heart disease of native coronary artery without angina pectoris; K22.8 Other specified diseases of esophagus; K31.7 Polyp of stomach and duodenum; Z99.81 Dependence on supplemental oxygen; Z79.4 Long term (current) use of insulin
CPT/HCPCS: 36415; 71046; 80053; 80069; 82947; 83735; 83880; 84145; 84484; 85014; 85018; 85025; 87081; 93005; 93010; 94640; 94660; 94664; 94667; 94760; 94762; 96365; 96367; 96372-59; 98960; 99285-25; A9270; J0456; J0696; J1644; J2704; J7030; J7050

== ENCOUNTER 2019-10-13 13:56 | Day surgery (SDC) | payer OTHER, MEDICARE ==
[~2019-10-13] VITALS: Ht 190.5 cm; Wt 149.0 kg
[~2019-10-13 13:56] MED LIST changes: +ALLERGY EYE DRO10 M1 BOTHEYES; +ASCO500 PO; +ASPERCREME76.5 GM TOP; +Calcium Carbon650 MG PO; +DOXY100 PO; +Flonase 0.05% N16 GM; +GAVILAX17 GM PO; +Humalog Mi100 UNIT/4; +LIDO700A20 TOP; +MYNEPHRON CAPSUL1 MG PO; +ONDA4ODT SL; +RENAL-VITE TAB0.8 MG PO; +VITAMIN D3400 UNI1 PO; +VITAMIN E400 UNI1 PO
--- NOTE | 2019-10-13 14:21 | NUR ---
History, Chart, Medications and Allergies reviewed before start of procedure.Patient confirms NPO status and agrees with scheduled surgery.
[2019-10-13] MEDS ORDERED: NEPHRO-VITE RX1 EACH PO (14:38)
--- NOTE | 2019-10-13 15:48 | NUR ---
10/13/19 1547 Golden Alfaro Bite Block Placed. See Anesthesia record. Patient to ENDO 1History, Chart, Medications and Allergies reviewed before start of procedure. MONITOR INTACT WITH CONTINUOUS PULSE OXIMETRY AND INTERMITTENT BP. Dentures removed and placed in cup. O2 VIA N/C INTACT THROUGHOUT SEDATION/PROCEDURE.
--- NOTE | 2019-10-13 17:16 | NUR ---
1705-PT DISCHARGED ACC BY HIS . PT AND HIS VERBALIZE A GOOD UNDERSTANDING OF DISCHARGE INSTRUCTIONS.
== END 2019-10-13 23:17 | disposition home or self-care (01) ==
LOC: ORSCMMR 13:56
PROVIDERS: Internal Medicine Gastroenterology
PROC: 0D758ZZ Dilation of Esophagus, Via Natural or Artificial Opening Endoscopic (ICD-10-PCS; principal; 2019-10-13 15:00)
PROC: 0DB68ZX Excision of Stomach, Via Natural or Artificial Opening Endoscopic, Diagnostic (ICD-10-PCS; principal; 2019-10-13 15:00)
PROC: 0DB58ZX Excision of Esophagus, Via Natural or Artificial Opening Endoscopic, Diagnostic (ICD-10-PCS; principal; 2019-10-13 15:00)
DX: K21.9 Gastro-esophageal reflux disease without esophagitis (principal); R13.14 Dysphagia, pharyngoesophageal phase; K31.7 Polyp of stomach and duodenum; E83.59 Other disorders of calcium metabolism; I48.91 Unspecified atrial fibrillation; J44.9 Chronic obstructive pulmonary disease, unspecified; E11.9 Type 2 diabetes mellitus without complications; E66.01 Morbid (severe) obesity due to excess calories; Z68.41 Body mass index [BMI] 40.0-44.9, adult; Z79.01 Long term (current) use of anticoagulants; E11.40 Type 2 diabetes mellitus with diabetic neuropathy, unspecified; E11.22 Type 2 diabetes mellitus with diabetic chronic kidney disease; I25.10 Atherosclerotic heart disease of native coronary artery without angina pectoris; I12.9 Hypertensive chronic kidney disease with stage 1 through stage 4 chronic kidney disease, or unspecified chronic kidney disease; N18.9 Chronic kidney disease, unspecified; Z99.81 Dependence on supplemental oxygen; Z79.4 Long term (current) use of insulin
CPT/HCPCS: 82947; 88305; 88341; 88342; J2704; J7030

== ENCOUNTER 2020-05-01 19:34 | Inpatient (IN) | payer OTHER, MEDICARE ==
[~2020-05-01] VITALS: Ht 190.5 cm; Wt 138.6 kg
[~2020-05-01 19:34] MED LIST changes: +ACET325 PO; +ALPR.25 PO; +AMOCLA500 PO; +BASAGLAR K100 UNIT/1 SC; +FLUC150A PO; -INSULANPEN SC; +LACT PO; +LIDOCAINE5 GM TOP; +MELA3 PO; +NEPHRO-VITE RX1 EACH PO; +ONDA4 PO; -ONDA4ODT SL; +RENAL VITAMIN0.8 MG PO; +VITAMIN D-40010 MC1 PO
[2020-05-01 20:15] LABS: Calcium, Ionized (POC) 1.12 mmol/L (1.10-1.46); Chloride (POC) 96 mmol/L (98-108); Creatinine (POC) 6.1 mg/dL (0.8-1.3); Glucose (ISTAT POC) 255 mg/dL (70-99); Hemoglobin (POC) 13.9 g/dL (13.5-17.5); Potassium (POC) 4.4 mmol/L (3.5-5.5); Sodium (POC) 137 mmol/L (135-148); Total CO2 (POC) 32 mmol/L (21-32)
[2020-05-01 20:21] LABS: BASOPHILS ABSOLUTE AUTO 0.02 K/mm3 (0.00-0.23); BASOPHILS PERCENT AUTO 0 % (0-2); EOSINOPHILS ABSOLUTE AUTO 0.03 K/mm3 (0.00-0.68); EOSINOPHILS PERCENT AUTO 0 % (0-6); Hematocrit 40.8 % (37.0-53.0); Hemoglobin 12.1 g/dL (13.5-17.5); IMMATURE GRAN ABSOLUTE AUTO 0.07 K/mm3 (0.00-0.10); IMMATURE GRAN PERCENT AUTO 1 % (0-1); LYMPHOCYTES ABSOLUTE AUTO 0.23 K/mm3 (0.84-5.20); LYMPHOCYTES PERCENT AUTO 2 % (21-46); MONOCYTES ABSOLUTE AUTO 0.71 K/mm3 (0.16-1.47); MONOCYTES PERCENT AUTO 7 % (4-13); Mean Corpuscular HGB 28.5 pg (26.0-34.0); Mean Corpuscular HGB Conc 29.7 g/dL (31.5-36.5); Mean Corpuscular Volume 96 fL (80-100); Mean Platelet Volume 11.3 fL (9.1-12.4); NEUTROPHILS ABSOLUTE AUTO 9.14 K/mm3 (1.96-9.15); NEUTROPHILS PERCENT AUTO 90 % (41-73); Platelet Count 155 K/mm3 (150-400); RDW Coefficient Variation 15.8 % (11.7-14.2); RDW Standard Deviation 55.9 fL (35.1-46.3); Red Blood Cell Count 4.24 M/mm3 (4.30-5.90)
[2020-05-01 20:43] LABS: Albumin, Blood 2.8 g/dL (3.4-5.0); Albumin/Globulin Ratio 0.7 (0.8-1.8); Bilirubin, Total 2.8 mg/dL (0.1-1.0); Bun/Creatinine Ratio 7.4 (12.0-20.0); Calcium, Blood 9.1 mg/dL (8.5-10.1); Creatinine, Blood 5.81 mg/dL (0.60-1.20); Globulin, Blood 4.2 g/dL (2.2-4.0); Potassium, Blood 4.5 mmol/L (3.5-5.5); Troponin I 0.017 ng/mL (0.000-0.040)
[2020-05-02] MEDS ORDERED: Norco 10-325 T1 EACH PO (02:37)
[2020-05-02] MEDS ORDERED: PANT40 PO (02:40)
--- NOTE | 2020-05-02 03:13 | NUR ---
PT TO ICU 5 FROM ED. PT ARRIVED ON 6LNC WITH SATS 100%, PLACE ON 4L NC-CURRENT SATS 94%. PT ABLE TO ASSIST IN ROLLING SIDE/SIDE AND ABLE TO MAINTAIN SATS>90%. LUNG SOUNDS DIM T/O, PT DENIES COUGH. PT AFIB WITH HR 89. MILD ABDOMINAL TENDERNESS WITH PALPATION. BT+X4. PT ANURIC AT BASELINE, TUE/THUR/SAT DIALYSIS PT OF DR. LAM. CURRENT AV FISTUAL EDMAR, OLD FISTULA LEFT ARM. PT HAS SCATTERED BRUISES D/T REPORTED RECENT FALLS. SCABS SCATTERED BLE, SEE PICTS IN CHART. NS @100 ML/HR X1 LITER. SEE FULL ADMISSION ASSESSMENT.
[2020-05-02 04:37] LABS: BASOPHILS ABSOLUTE AUTO 0.02 K/mm3 (0.00-0.23); BASOPHILS PERCENT AUTO 0 % (0-2); EOSINOPHILS ABSOLUTE AUTO 0.01 K/mm3 (0.00-0.68); EOSINOPHILS PERCENT AUTO 0 % (0-6); Hematocrit 39.6 % (37.0-53.0); Hemoglobin 11.7 g/dL (13.5-17.5); IMMATURE GRAN ABSOLUTE AUTO 0.14 K/mm3 (0.00-0.10); IMMATURE GRAN PERCENT AUTO 1 % (0-1); LYMPHOCYTES ABSOLUTE AUTO 1.01 K/mm3 (0.84-5.20); LYMPHOCYTES PERCENT AUTO 7 % (21-46); MONOCYTES ABSOLUTE AUTO 1.01 K/mm3 (0.16-1.47); MONOCYTES PERCENT AUTO 7 % (4-13); Mean Corpuscular HGB 28.7 pg (26.0-34.0); Mean Corpuscular HGB Conc 29.5 g/dL (31.5-36.5); Mean Corpuscular Volume 97 fL (80-100); Mean Platelet Volume 11.1 fL (9.1-12.4); NEUTROPHILS ABSOLUTE AUTO 12.23 K/mm3 (1.96-9.15); NEUTROPHILS PERCENT AUTO 85 % (41-73); Platelet Count 140 K/mm3 (150-400); RDW Coefficient Variation 15.8 % (11.7-14.2); RDW Standard Deviation 55.1 fL (35.1-46.3); Red Blood Cell Count 4.07 M/mm3 (4.30-5.90); White Blood Cell Count 14.42 K/mm3 (4.00-11.30)
[2020-05-02 05:01] LABS: Albumin, Blood 2.8 g/dL (3.4-5.0); Albumin/Globulin Ratio 0.7 (0.8-1.8); Bun/Creatinine Ratio 7.5 (12.0-20.0); Calcium, Blood 9.4 mg/dL (8.5-10.1); Creatinine, Blood 6.26 mg/dL (0.60-1.20); Globulin, Blood 4.1 g/dL (2.2-4.0); Potassium, Blood 4.6 mmol/L (3.5-5.5); Total Protein, Blood 6.9 g/dL (6.4-8.2)
[2020-05-02 05:16] LABS: Adenovirus Not Detected (NOT DETECT); Coronavirus 229E Not Detected (NOT DETECT); Coronavirus HKU1 Not Detected (NOT DETECT); Coronavirus NL63 Not Detected (NOT DETECT)
[2020-05-02 05:17] LABS: Bordetella pertussis Not Detected (NOT DETECT); Chlamydophila pneumoniae Not Detected (NOT DETECT); Coronavirus OC43 Not Detected (NOT DETECT); Human Metapneumovirus Not Detected (NOT DETECT); Human Rhinovirus/Enterovirus Not Detected (NOT DETECT); Influenza A/2009-H1 Not Detected (NOT DETECT); Influenza A/H1 Not Detected (NOT DETECT); Influenza A/H3 Not Detected (NOT DETECT); Influenza B Not Detected (NOT DETECT); Mycoplasma pneumoniae Not Detected (NOT DETECT); Parainfluenza Virus 1 Not Detected (NOT DETECT); Parainfluenza Virus 2 Not Detected (NOT DETECT); Parainfluenza Virus 3 Not Detected (NOT DETECT); Parainfluenza Virus 4 Not Detected (NOT DETECT); Respiratory Syncytial Virus Not Detected (NOT DETECT)
--- NOTE | 2020-05-02 06:14 | NUR ---
PT'S CALLED, UPDATED WITH PT STATUS AND GIVEN VISITING HOURS.
[2020-05-02 09:24] LABS: Adenovirus F 40/41 Not Detected (NOT DETECT); Astrovirus Not Detected (NOT DETECT); Campylobacter Sp Not Detected (NOT DETECT); Cryptosporidium Not Detected (NOT DETECT); Cyclospora Cayetanensis Not Detected (NOT DETECT); E. Coli O157 Not Detected (NOT DETECT); Entamoeba Histolytica Not Detected (NOT DETECT); Enteroaggregative E. coli-EAEC Not Detected (NOT DETECT); Enteropathogenic E. coli-EPEC Not Detected (NOT DETECT); Enterotoxigenic E. coli-ETEC Not Detected (NOT DETECT); Giardia Lamblia Not Detected (NOT DETECT); Norovirus GI/GII Not Detected (NOT DETECT); Plesiomonas Shigelloides Not Detected (NOT DETECT); Rotavirus A Not Detected (NOT DETECT); Salmonella Sp Not Detected (NOT DETECT); Sapovirus Not Detected (NOT DETECT); Shiga Toxin-prod E. coli-STEC Not Detected (NOT DETECT); Shigella/Enteroin E. coli-EIEC Not Detected (NOT DETECT); Vibrio Cholerae Not Detected (NOT DETECT); Vibrio Sp Not Detected (NOT DETECT); Yersinia Enterocolitica Not Detected (NOT DETECT)
--- NOTE | 2020-05-02 09:43 | NUR ---
PT AWAKE IN BED THIS AM. PT DENIES C/O ABD PAIN THIS AM, DENIES NAUSEA, DENIES SOB. PT AWAKE WATCHING TV; PT'S WAS IN THIS AM TO VISIT. DR EVERETT IN TO SEE PT THIS AM. PT NOW PCU STATUS. VSS. HD SCHEDULED FOR TOMORROW. HIDA SCAN SCHEDULED FOR TOMORROW SCANS ARE DOWN FOR THE DAY. PT'S DIET CHANGED TO ADA, TOLERATING CLEAR LIQUIDS. LIQUID STOOL SAMPLE SENT TO RULE OUT CDIFF.
--- NOTE | 2020-05-02 21:47 | NUR ---
ASSUMED CARE OF PT, REPORT RCV'D FROM HERON BAI. PT ALERT AND ORIENTED SITTING UP IN BED. PT DENIES CURRENT ABDOMINAL PAIN ARE STATES HE FEELS "MUCH BETTER". PT ABLE TO EAT LUNCH AND DINNER WITH N/V. SATS>90% ON 3L NC. CURRENTLY AFIB, WITH HR 98. BED IN LOW/LOCKED POSITION, CALL LIGHT WITHIN REACH.
[2020-05-03 04:01] LABS: Hematocrit 37.8 % (37.0-53.0); Hemoglobin 11.3 g/dL (13.5-17.5)
[2020-05-03 04:19] LABS: Albumin, Blood 2.6 g/dL (3.4-5.0); Anion Gap 10 mmol/L (6-16); Blood Urea Nitrogen 61 mg/dL (8-24); Bun/Creatinine Ratio 8.2 (12.0-20.0); CO2, Blood 31 mmol/L (21-32); Calcium, Blood 9.8 mg/dL (8.5-10.1); Chloride, Blood 98 mmol/L (98-108); Creatinine, Blood 7.41 mg/dL (0.60-1.20); Glomerular Filtration Rate 8 (60-); Glucose, Blood 121 mg/dL (70-99); Magnesium, Blood 2.3 mg/dL (1.6-2.4); Phosphorus, Blood 4.5 mg/dL (2.5-4.9); Potassium, Blood 5.1 mmol/L (3.5-5.5); Sodium, Blood 139 mmol/L (136-145)
--- NOTE | 2020-05-03 05:13 | NUR ---
SHIFT SUMMARY NO ACUTE CHANGES OVERNIGHT. PT CONTINUES TO DENY ABDOMINAL PAIN. REMAINS ON 3L NC WITH SATS>90%, LUNG SOUNDS CLEAR WITH DIM BASES, NO COUGH. VSS T/O SHIFT, CONTINUES TO BE IN AFIB. WILL REPORT TO DAYSHIFT NURSE.
--- NOTE | 2020-05-03 07:28 | NUR ---
ASSUMED CARE BEDSIDE REPORT RECIEVED. ASSISTED PT OFF BEDPAN. PT IS AWAKE, ALERT, AND ORIENTED. PT DENIES PAIN OR DISCOMFORT AT THIS TIME. VITAL SIGNS STABLE. PT ON 3L O2 NC. IV'S SALINE LOCKED. PT WITH FISTULA IN EDMAR. PLAN FOR DIALYSIS TODAY. PT ANUREIC. PT TOLERATING PO DIET WELL. WILL CONTINUE TO MONITOR.
--- NOTE | 2020-05-03 09:20 | NUR ---
UPDATE DR EVERETT ROUNDED ON PT. ORDERS FOR MEDICAL STATUS. PT TAKEN TO DIALYSIS VIA BED AT THIS TIME. PT SPOUSE VISITED WITH PT AT BEDSIDE.
--- NOTE | 2020-05-03 14:21 | NUR ---
HIDA SCAN PT TAKEN BY SPINNER CAP FRAME VIA BED FOR HIDA SCAN AT THIS TIME. PT SPOUSE IN ROOM AT BEDSIDE.
--- NOTE | 2020-05-03 16:18 | NUR ---
TRANSFER TO MEDICAL REPORT CALLED TO HERON ABREU. ALL QUESTIONS ANSWERED. PT CURRENTLY REMAINS IN IMAGING FOR HIDA STUDY. PT TO BE TRANSFERED TO ROOM 344 DIRECTLY AFTER IMAGING STUDIES ARE COMPLETE. ALL PT BELONGINGS AND MEDS SENT TO 344.
--- NOTE | 2020-05-03 18:01 | NUR ---
ICU TRANSFER- PT ARRIVED TO ROOM 344 VIA BED FROM ICU POST HIDA SCAN. PT A 4 PERSON SLIDE INTO BED. PT A/O X4, SPOUSE AT BEDSIDE. PT REPORTS CHRONIC PAIN EVERYWHERE. LS CLEAR, ON 3L N/C WHICH PT STATES IS HIS BASELINE. TELE AFIB AT 86. PT WITH HD TODAY. ABD TENDER. NO EDEMA PRESENT. IV X2 PRESENT. VSS. PT REPORTS HE IS A LIFT AT BASELINE. PT ORIENTED TO ROOM AND CALL SYSTEM, CALL LIGHT IN REACH.
--- NOTE | 2020-05-04 04:31 | NUR ---
SHIFT SUMMARY NO ACUTE CHANGES TO REPORT THIS SHIFT. PT RECEIVED HOME DOSE OF PO ATIVAN ORDERED PER HIS REQUEST. HE HAS BEEN ABLE TO REST WELL THIS SHIFT. ASSESSMENT UNCHANGED. 3L O2 IN PLACE, RESP E/U. IV ABX CONTINUED PER ORDERS. VITALS STABLE. PLAN IS FOR DC TODAY. BED IN LOWEST POSITION, CALL LIGHT WITHIN REACH. WILL CONTINUE TO MONITOR AND REPORT TO ONCOMING RN.
[2020-05-04] MEDS ORDERED: VISBIOME PROBIOTIC PO (13:17)
[2020-05-04] MEDS ORDERED: AUGMENTIN 875-1 EACH PO (13:18)
--- NOTE | 2020-05-04 13:51 | NUR ---
DISCHARGE INSTRUCTIONS REVIEWED WITH PT AND SPOUSE. IV X2 DC'D INTACT. RX FAXED TO [facility]. SPOUSE REPORTS SHE SPOKE WITH [facility] THIS MORNIN REGARDING FOLLOWING UP WITH THEM. PT HAS DIAYSIS TOMORROW PER HIS SCHEDULE. RAPID COVID NEGATIVE. PT ASSISTED INTO W/C VIA [facility]I LIFT INTO MOTORIZED W/C DC'D HOME WITH SPOUSE AT 1350.
== END 2020-05-04 13:50 | disposition home or self-care (01) | DRG 444 ==
LOC: ER 19:34 → ICUW 19:35 → ER 19:35 → MEDS 05-02 00:41 → ICUW 05-02 00:41 → MEDS 05-02 00:41 → ICUE 05-02 01:36 → ER 05-02 01:36 → MEDS 05-02 01:36 → ICUW 05-02 01:36 → ICUE 05-02 01:43 → ICUW 05-02 01:43 → ICUE 05-02 08:45 → MEDS 05-03 16:17
PROVIDERS: Internal Medicine Nephrology; Physician Assistant; ADMIT Internal Medicine
DX: K80.20 Calculus of gallbladder without cholecystitis without obstruction (principal); N18.6 End stage renal disease; R65.10 Systemic inflammatory response syndrome (SIRS) of non-infectious origin without acute organ dysfunction; I13.2 Hypertensive heart and chronic kidney disease with heart failure and with stage 5 chronic kidney disease, or end stage renal disease; I50.42 Chronic combined systolic (congestive) and diastolic (congestive) heart failure; J96.11 Chronic respiratory failure with hypoxia; E11.22 Type 2 diabetes mellitus with diabetic chronic kidney disease; Z99.2 Dependence on renal dialysis; I48.0 Paroxysmal atrial fibrillation; I25.10 Atherosclerotic heart disease of native coronary artery without angina pectoris; E78.5 Hyperlipidemia, unspecified; J44.9 Chronic obstructive pulmonary disease, unspecified; E11.40 Type 2 diabetes mellitus with diabetic neuropathy, unspecified; Z20.828 Contact with and (suspected) exposure to other viral communicable diseases; K21.9 Gastro-esophageal reflux disease without esophagitis; E86.0 Dehydration; K59.00 Constipation, unspecified; D63.1 Anemia in chronic kidney disease; E87.70 Fluid overload, unspecified; E66.01 Morbid (severe) obesity due to excess calories; E87.5 Hyperkalemia; G47.33 Obstructive sleep apnea (adult) (pediatric); Z87.891 Personal history of nicotine dependence; Z68.38 Body mass index [BMI] 38.0-38.9, adult; Z79.899 Other long term (current) drug therapy; Z79.02 Long term (current) use of antithrombotics/antiplatelets; Z79.4 Long term (current) use of insulin; Z79.51 Long term (current) use of inhaled steroids; Z88.8 Allergy status to other drugs, medicaments and biological substances
CPT/HCPCS: 0097U; 0099U; 36415; 71045; 74176; 76705; 78227; 80047; 80053; 80069; 82947; 83605; 83690; 83735; 83880; 84132; 84484; 85014; 85018; 85025; 87040; 93005; 93010; 96365; 96367; 99285-25; A9270-GY; A9537; J0696; J1644; J2405; J2805; J7030; J7050; U0002

== ENCOUNTER 2021-02-25 22:18 | Emergency (ER) | payer OTHER, MEDICARE ==
[~2021-02-25] VITALS: Ht 188 cm; Wt 170.1 kg
[~2021-02-25 22:18] MED LIST changes: +AUGMENTIN 875-1 EACH PO; +Norco 10-325 T1 EACH PO; +VISBIOME PROBIOTIC PO
[2021-02-25 23:59] LABS: BASOPHILS ABSOLUTE AUTO 0.02 K/mm3 (0.00-0.23); BASOPHILS PERCENT AUTO 0 % (0-2); EOSINOPHILS ABSOLUTE AUTO 0.08 K/mm3 (0.00-0.68); EOSINOPHILS PERCENT AUTO 1 % (0-6); Hematocrit 37.5 % (37.0-53.0); Hemoglobin 11.8 g/dL (13.5-17.5); IMMATURE GRAN ABSOLUTE AUTO 0.01 K/mm3 (0.00-0.10); IMMATURE GRAN PERCENT AUTO 0 % (0-1); LYMPHOCYTES PERCENT AUTO 18 % (21-46); MONOCYTES ABSOLUTE AUTO 0.66 K/mm3 (0.16-1.47); MONOCYTES PERCENT AUTO 10 % (4-13); Mean Corpuscular HGB 30.2 pg (26.0-34.0); Mean Corpuscular HGB Conc 31.5 g/dL (31.5-36.5); Mean Corpuscular Volume 96 fL (80-100); Mean Platelet Volume 10.6 fL (9.1-12.4); NEUTROPHILS ABSOLUTE AUTO 4.84 K/mm3 (1.96-9.15); NEUTROPHILS PERCENT AUTO 71 % (41-73); Platelet Count 131 K/mm3 (150-400); RDW Coefficient Variation 15.5 % (11.7-14.2); RDW Standard Deviation 54.7 fL (35.1-46.3); Red Blood Cell Count 3.91 M/mm3 (4.30-5.90); White Blood Cell Count 6.81 K/mm3 (4.00-11.30)
[2021-02-26 00:16] LABS: International Normalized Ratio 1.06; Prothrombin Time Results 11.4 Sec (9.7-11.5)
[2021-02-26 00:17] LABS: Albumin, Blood 3.3 g/dL (3.4-5.0); Albumin/Globulin Ratio 0.8 (0.8-1.8); Bilirubin, Total 0.4 mg/dL (0.1-1.0); Bun/Creatinine Ratio 8.4 (12.0-20.0); Calcium, Blood 9.6 mg/dL (8.5-10.1); Creatinine, Blood 3.81 mg/dL (0.60-1.20); Potassium, Blood 4.3 mmol/L (3.5-5.5); Total Protein, Blood 7.3 g/dL (6.4-8.2)
[2021-02-26] MEDS ORDERED: Norco 5-325 Ta1 EACH PO (02:54)
== END 2021-02-26 03:00 | disposition home or self-care (01) ==
LOC: ER 22:18
PROVIDERS: Emergency Medicine
DX: I70.218 Atherosclerosis of native arteries of extremities with intermittent claudication, other extremity (principal); Z79.899 Other long term (current) drug therapy; Z79.02 Long term (current) use of antithrombotics/antiplatelets; Z88.8 Allergy status to other drugs, medicaments and biological substances
CPT/HCPCS: 36415; 73130; 80053; 83605; 85025; 85610; 99283-25; A9270; A9270-GY

== ENCOUNTER 2021-03-14 17:15 | Emergency (ER) | payer OTHER, MEDICARE ==
[~2021-03-14] VITALS: Ht 188 cm; Wt 122.5 kg
[~2021-03-14 17:15] MED LIST changes: +Norco 5-325 Ta1 EACH PO
== END 2021-03-14 20:06 | disposition home or self-care (01) ==
LOC: ER 17:15
DX: T82.838A Hemorrhage due to vascular prosthetic devices, implants and grafts, initial encounter (principal); I13.0 Hypertensive heart and chronic kidney disease with heart failure and stage 1 through stage 4 chronic kidney disease, or unspecified chronic kidney disease; I50.9 Heart failure, unspecified; E11.22 Type 2 diabetes mellitus with diabetic chronic kidney disease; N18.9 Chronic kidney disease, unspecified; E78.00 Pure hypercholesterolemia, unspecified; K21.9 Gastro-esophageal reflux disease without esophagitis; J44.9 Chronic obstructive pulmonary disease, unspecified; Z99.2 Dependence on renal dialysis; Z87.891 Personal history of nicotine dependence; Z79.899 Other long term (current) drug therapy; Z88.1 Allergy status to other antibiotic agents; Z79.02 Long term (current) use of antithrombotics/antiplatelets
CPT/HCPCS: 99283